=== PATIENT | female | born 1960 | race Caucasian/White ===

== ENCOUNTER → 2018-06-21 | Day surgery (SDC) | payer MEDICAID ==
[~2018-06-21] VITALS: Ht 162.6 cm; Wt 73.0 kg
[~2018-06-21] MED LIST: ALPR-341 PO; ATOR10TA69 PO; BUPR-102 PO; FENTANYL CITRATE/PF 50MCG/ML 2ML VIAL IV PRN; FENTANYL CITRATE/PF 50MCG/ML 2ML VIAL ONE; HYDR-4001 PO; HYDRALAZINE 20MG/ML VIAL ONE; MIDAZOLAM HCL 2 MG/2 ML VIAL ONE; ONDANSETRON HCL 4MG/2ML VIAL IV PRN; PROPOFOL 200MG/20ML VIAL IV ONE; SERT50TA PO; SUMA100T16 PO; TRAZ-212 PO
== END | disposition home or self-care (01) ==
LOC: OR 06:06
PROVIDERS: ATTEND Urology
DX: R10.9 Unspecified abdominal pain (principal); E78.00 Pure hypercholesterolemia, unspecified; F41.9 Anxiety disorder, unspecified; F32.9 Major depressive disorder, single episode, unspecified; Z98.890 Other specified postprocedural states; Z87.442 Personal history of urinary calculi; Z79.899 Other long term (current) drug therapy; Z88.8 Allergy status to other drugs, medicaments and biological substances
CPT/HCPCS: 52351; 74018; J0360; J2250; J3010; J7120; J2704